=== PATIENT | female | born 1935 | race Two or more races ===

== ENCOUNTER 2017-08-06 10:56 | Emergency (ER) | payer OTHER ==
[~2017-08-06] VITALS: Ht 167.6 cm; Wt 56.7 kg
[~2017-08-06 10:56] MED LIST: ACETAMINOPHEN500 M1 PO; BENZONATATE200 M1 PO; CELEBREX100 MG PO; DICLOFENAC SODI50 MG PO; INTESTINEX1 CA1 PO; IOPHEN DM-100 MG/5 M PO; LEVAQUIN750 MG PO; MAXITROL EYE DRO5 ML OP; ORPH100T PO; Synthroid PO; ZOVIRAX15 GM TP; ZOVIRAX800 M1 PO
== END 2017-08-06 16:29 | disposition home or self-care (01) ==
LOC: ER 10:56
DX: R42 Dizziness and giddiness (principal)

== ENCOUNTER 2021-12-23 15:22 | Emergency (ER) | payer OTHER ==
[~2021-12-23] VITALS: Ht 154.9 cm; Wt 55.8 kg
[2021-12-23] MEDS ORDERED: TOPROL XL25 M1 PO (16:17)
[2021-12-23] MEDS ORDERED: LEVOTHYROXINE25 MCG PO (16:18)
== END 2021-12-23 19:32 | disposition home or self-care (01) ==
LOC: ER 15:22
DX: U07.1 COVID-19 (principal); K62.5 Hemorrhage of anus and rectum; K64.8 Other hemorrhoids

== ENCOUNTER 2024-07-19 10:27 | Outpatient (CLI) | payer OTHER ==
[~2024-07-19 10:27] MED LIST changes: +LEVOTHYROXINE25 MCG PO; +TOPROL XL25 M1 PO
== END 2024-07-19 10:30 | disposition home or self-care (01) ==
LOC: RAD 10:27
DX: M15.0 Primary generalized (osteo)arthritis (principal); M75.51 Bursitis of right shoulder